=== PATIENT | female | born 1960 | race Native Hawaiian/Other Pacific Islander ===

== ENCOUNTER 2019-02-02 11:02 | Emergency (ER) | payer MEDICARE, MEDICAID ==
[~2019-02-02] VITALS: Ht 154.9 cm; Wt 204.0 kg
[2019-02-02] MEDS ORDERED: predniSONE 20 mg tablet PO ONE (11:55)
[2019-02-02] MEDS ORDERED: ipratropium/albuterol 3ml nebule NEB ONE (11:55)
[2019-02-02 12:30] LABS: BASOPHILS % (AUTO) 0.2 % (0-1); EOSINOPHILS # (AUTO) 0.1 X10'3 (0-0.9); EOSINOPHILS % (AUTO) 1.2 % (0-6); HEMATOCRIT 36.7 % (35.0-45.0); LYMPHOCYTES # (AUTO) 1.4 X10'3 (1.1-4.8); LYMPHOCYTES % (AUTO) 17.3 % (21-51); MEAN CORPUSCULAR HEMOGLOBIN 29.3 PG (27.0-31.0); MEAN CORPUSCULAR HGB CONC 32.7 g/dL (33.0-36.5); MEAN CORPUSCULAR VOLUME 89.7 FL (78-98); MEAN PLATELET VOLUME 8.6 FL (7.4-10.4); MONOCYTES # (AUTO) 0.5 X10'3 (0-0.9); MONOCYTES % (AUTO) 6.1 % (2-12); NEUTROPHILS # (AUTO) 6.1 X10'3 (1.8-7.7); NEUTROPHILS % (AUTO) 75.2 % (42-75); PLATELET COUNT 144 X10'3 (140-440); RED BLOOD COUNT 4.09 X10'6 (4.20-5.60); RED CELL DISTRIBUTION WIDTH 15.3 % (11.5-14.5); WHITE BLOOD COUNT 8.1 X10'3 (4.5-11.0)
[2019-02-02 12:45] LABS: ALANINE AMINOTRANSFERASE 15 U/L (12-78); ALBUMIN 2.8 G/DL (3.4-5.0); ALBUMIN/GLOBULIN RATIO 0.5 (1.1-1.5); ALKALINE PHOSPHATASE 58 IU/L (46-116); ANION GAP 6 (8-16); ASPARTATE AMINO TRANSFERASE 15 U/L (10-37); BLOOD UREA NITROGEN 7 MG/DL (7-18); BUN/CREATININE RATIO 8.6 (6.6-38.0); CALCIUM 7.9 MG/DL (8.5-10.1); CHLORIDE 104 MMOL/L (99-107); CREATININE 0.81 MG/DL (0.40-0.90); GLUCOSE 102 MG/DL (70-104); MAGNESIUM 1.7 MG/DL (1.5-2.4); POTASSIUM 3.8 MMOL/L (3.5-5.1); SODIUM 141 MMOL/L (135-145); TOTAL CARBON DIOXIDE 31.3 MMOL/L (24-32); TOTAL PROTEIN 7.9 G/DL (6.4-8.2); eGFR 73 ML/MIN
[2019-02-02] MEDS ORDERED: ketorolac trometh. 30mg/ml inj. IV ONE (13:50)
[2019-02-02] MEDS ORDERED: PRED20TA PO (14:27)
[2019-02-02 14:51] VITALS: BP 117/38
== END 2019-02-02 15:13 | disposition home or self-care (01) ==
LOC: ER 11:03
DX: J44.1 Chronic obstructive pulmonary disease with (acute) exacerbation (principal); Z88.6 Allergy status to analgesic agent; Z79.899 Other long term (current) drug therapy
CPT/HCPCS: 36415; 71046; 80053; 83605; 83735; 83880; 84484; 85025; 87040; 87077; 87186; 93005; 94640; 94760; 96374; 99284; J1885; J7512

== ENCOUNTER 2019-02-04 08:04 | Inpatient (IN) | payer MEDICARE, MEDICAID ==
[~2019-02-04] VITALS: Ht 154.9 cm; Wt 201.7 kg
[~2019-02-04 08:04] MED LIST: PRED20TA PO
[2019-02-04] MEDS ORDERED: levoFLOXACIN-Levaquin 750MG/D5 150 ML IV ONE (08:20)
[2019-02-04] MEDS ORDERED: normal saline 1000ML IV soln IV ONE (08:20)
--- NOTE | 2019-02-04 08:21 | NUR ---
AWAITING FOR PICC RN TO START PIV.
[2019-02-04] MEDS ORDERED: ipratropium/albuterol 3ml nebule NEB ONE (08:25)
[2019-02-04] MEDS ORDERED: methylPREDNISolone sod succ 125mg/2ml vial IV ONE (08:25)
[2019-02-04 08:26] LABS: ABG BASE EXCESS 4.9 mmol/L (-2.0-3.0); ABG HCO3 31.3 mmol/L (22.0-26.0); ABG OXYGEN SATURATION 98.2 % (95-98); ABG PCO2 (T) 57.7 mmHg (35.0-45.0); ABG PH (T) 7.359 (7.350-7.450); ABG PO2 (T) 141.3 mmHg (83-108); ALLEN'S TEST Positive; FCOHb 1.4 % (0.5-1.5); FLOW 10 L/min; FMetHb 0.2 % (0.3-1.12); FO2Hb 96.6 % (94-100); PATIENT TEMPERATURE 38.7; TOTAL HEMOGLOBIN 13.3 G/dl (12.0-16.0)
--- NOTE | 2019-02-04 08:28 | NUR ---
picc RN at bedside.
[2019-02-04 09:00] LABS: BASOPHILS % (AUTO) 0.1 % (0-1); EOSINOPHILS % (AUTO) 0 % (0-6); HEMATOCRIT 37.3 % (35.0-45.0); HEMOGLOBIN 12.2 g/dl (12.0-16.0); LYMPHOCYTES # (AUTO) 0.6 X10'3 (1.1-4.8); LYMPHOCYTES % (AUTO) 6.3 % (21-51); MEAN CORPUSCULAR HEMOGLOBIN 29.4 PG (27.0-31.0); MEAN CORPUSCULAR HGB CONC 32.7 g/dL (33.0-36.5); MEAN CORPUSCULAR VOLUME 89.9 FL (78-98); MEAN PLATELET VOLUME 8.7 FL (7.4-10.4); MONOCYTES # (AUTO) 0.6 X10'3 (0-0.9); MONOCYTES % (AUTO) 6.8 % (2-12); NEUTROPHILS # (AUTO) 8.2 X10'3 (1.8-7.7); NEUTROPHILS % (AUTO) 86.8 % (42-75); PLATELET COUNT 170 X10'3 (140-440); RED BLOOD COUNT 4.14 X10'6 (4.20-5.60); RED CELL DISTRIBUTION WIDTH 15.4 % (11.5-14.5); WHITE BLOOD COUNT 9.5 X10'3 (4.5-11.0)
--- NOTE | 2019-02-04 09:03 | NUR ---
Rt and family at bedside.
[2019-02-04] MEDS ORDERED: FURO80TA87 PO (09:04)
[2019-02-04 09:20] LABS: PARTIAL THROMBOPLASTIN TIME 28 SECONDS (22-32)
[2019-02-04 09:23] LABS: CLARITY,URINE SLIGHTLY CLOUDY (Clear); COLOR,URINE YELLOW (Yellow); GLUCOSE, URINE NEGATIVE (Neg); KETONES,URINE NEGATIVE (Neg); LEUKOCYTE ESTERASE ,URINE NEGATIVE (Neg); NITRITES, URINE NEGATIVE (Neg); OCCULT BLOOD,URINE LARGE (Neg); PROTEIN,URINE 30 mg/dl (Neg)
--- NOTE | 2019-02-04 09:27 | NUR ---
breaking primary RN, pt is sitting up in bed family present, talking with them, no apparent distress
[2019-02-04 09:31] LABS: UA COLLECTION TYPE STRAIGHT CATH
[2019-02-04 09:33] LABS: MUCUS STRANDS MODERATE /LPF (Neg); SQUAMOUS EPITHELIAL CELL,UR MODERATE /LPF (FEW)
[2019-02-04 09:34] LABS: BACTERIA,URINE 1+ /HPF (Neg)
[2019-02-04 09:35] LABS: WBC CLUMPS,URINE FEW /HPF (NEGATIVE)
[2019-02-04 09:35] LABS: ALANINE AMINOTRANSFERASE 19 U/L (12-78); ALBUMIN 2.7 G/DL (3.4-5.0); ALBUMIN/GLOBULIN RATIO 0.5 (1.1-1.5); ALKALINE PHOSPHATASE 71 IU/L (46-116); ANION GAP 5 (8-16); ASPARTATE AMINO TRANSFERASE 17 U/L (10-37); BILIRUBIN,TOTAL 0.8 MG/DL (0.1-1.0); BLOOD UREA NITROGEN 11 MG/DL (7-18); BUN/CREATININE RATIO 12.8 (6.6-38.0); CALCIUM 8.5 MG/DL (8.5-10.1); CHLORIDE 105 MMOL/L (99-107); CREATININE 0.86 MG/DL (0.40-0.90); GLUCOSE 111 MG/DL (70-104); POTASSIUM 3.9 MMOL/L (3.5-5.1); SODIUM 142 MMOL/L (135-145); TOTAL CARBON DIOXIDE 31.6 MMOL/L (24-32); TOTAL PROTEIN 8.5 G/DL (6.4-8.2); eGFR 68 ML/MIN
[2019-02-04 10:01] LABS: ABG BASE EXCESS 3.3 mmol/L (-2.0-3.0); ABG HCO3 29.2 mmol/L (22.0-26.0); ABG OXYGEN SATURATION 93.8 % (95-98); ABG PCO2 (T) 51.3 mmHg (35.0-45.0); ABG PH (T) 7.376 (7.350-7.450); ABG PO2 (T) 73.5 mmHg (83-108); ALLEN'S TEST Positive; FCOHb 0.9 % (0.5-1.5); FLOW 3 L/min; FMetHb 0.1 % (0.3-1.12); FO2Hb 92.9 % (94-100); PATIENT TEMPERATURE 37.6; TOTAL HEMOGLOBIN 12.9 G/dl (12.0-16.0)
[2019-02-04 10:47] LABS: D-DIMER 1.72 MG/L FEU (0-0.50)
[2019-02-04] MEDS ORDERED: heparin 10,000 units/1 ML INJ IV PRN (11:20)
[2019-02-04] MEDS ORDERED: heparin 10,000 units/1 ML INJ IV ONE ×2 (11:20→11:25)
[2019-02-04] MEDS: heparin 25,000 UNIT/250ml bag 250 ML IV SCH (12:11)
--- NOTE | 2019-02-04 12:11 | NUR ---
Heparin drip rate verified with jorge Galvez to follow heparin per protocol.Rate at this time 2000 units/hour.
--- NOTE | 2019-02-04 12:51 | NUR ---
[facility] UNAVAILABLE DUE TO NEEDING PRIOR AUTHORIZATION
--- NOTE | 2019-02-04 14:28 | NUR ---
Patient up to bathroom at this time with assistance of family. Gait steady, balanced, no signs of distress noted, IV fluids running per MD order.
[2019-02-04] MEDS ORDERED: acetaminophen 325mg tablet PO PRN (16:35)
[2019-02-04] MEDS ORDERED: HYDROcodone/acetaminophen 5mg/325mg tablet PO PRN (16:35)
[2019-02-04] MEDS ORDERED: morphine 2 MG/ML inj. syringe IV PRN ×2 (16:35)
[2019-02-04] MEDS ORDERED: HYDROcodone/acetaminophen 10/325mg tab PO PRN (16:35)
[2019-02-04] MEDS ORDERED: magnesium hydroxide 30ml (MOM) UD suspension PO PRN (16:35)
[2019-02-04] MEDS ORDERED: mag hydrox/Alum hydrox/simeth 30ml oral suspension PO PRN (16:35)
[2019-02-04] MEDS ORDERED: ondansetron/PF 4mg/2ml inj IV PRN (16:35)
[2019-02-04] MEDS ORDERED: PRED20TA PO (16:52)
[2019-02-04] MEDS ORDERED: FURO-149 PO (16:52)
[2019-02-04] MEDS ORDERED: ALBU18HF2 INH (16:52)
[2019-02-04 16:53] LABS: HEMOGLOBIN A1C 5.7 % (4.5-6.2)
[2019-02-04] MEDS ORDERED: CARV3.122 PO (16:57)
[2019-02-04] MEDS ORDERED: POTA10TA36 PO (16:57)
[2019-02-04] MEDS ORDERED: BUDE10.2 INH (16:57)
--- NOTE | 2019-02-04 17:45 | NUR ---
Patient admitted in room PCU 3018 from ED. I have received report from Joseph ZAROC and had the opportunity to ask questions and assume patient care. Pt is stable, VS 152/77 68 18 96% on 3L, heparin GTTS infusing, all needs met at this time.
[2019-02-04] MEDS: furosemide 40mg/4ml inj IV SCH ×2 (18:40→23:03)
--- NOTE | 2019-02-04 18:45 | NUR ---
Patient in room PCU 3018. I have received report from HAROLDO Hammonds and had the opportunity to ask questions and assume patient care.
[2019-02-04 18:47] VITALS: BP 152/77
[2019-02-04] MEDS: budesonide 0.5mg/2ml UD nebule IH SCH (20:00)
[2019-02-04] MEDS: potassium chloride 10mEq ER tablet PO SCH ×2 (20:00→22:59)
[2019-02-04] MEDS: carVEDilol 3.125mg tablet PO SCH (20:46)
[2019-02-04 23:00] VITALS: BP 143/69
[2019-02-05 03:00] VITALS: BP 134/76
[2019-02-05] MEDS: heparin 25,000 UNIT/250ml bag 250 ML IV SCH (03:47)
--- NOTE | 2019-02-05 04:44 | NUR ---
Patient is going in and out of [facility]. Patient resting comfortable, asymptomatic. Reported to MD. Will continue to monitor.
[2019-02-05 06:00] VITALS: BP 139/73
--- NOTE | 2019-02-05 06:09 | NUR ---
Problems reprioritized. Patient report given, questions answered & plan of care reviewed with HAROLDO Cheatham.
[2019-02-05 06:10] LABS: BASOPHILS % (AUTO) 0.1 % (0-1); EOSINOPHILS % (AUTO) 0 % (0-6); HEMOGLOBIN 11.6 g/dl (12.0-16.0); LYMPHOCYTES # (AUTO) 0.8 X10'3 (1.1-4.8); LYMPHOCYTES % (AUTO) 8.9 % (21-51); MEAN CORPUSCULAR HEMOGLOBIN 29.3 PG (27.0-31.0); MEAN CORPUSCULAR HGB CONC 33.1 g/dL (33.0-36.5); MEAN CORPUSCULAR VOLUME 88.7 FL (78-98); MEAN PLATELET VOLUME 8.8 FL (7.4-10.4); MONOCYTES # (AUTO) 0.7 X10'3 (0-0.9); MONOCYTES % (AUTO) 8.3 % (2-12); NEUTROPHILS # (AUTO) 7.2 X10'3 (1.8-7.7); NEUTROPHILS % (AUTO) 82.7 % (42-75); PLATELET COUNT 174 X10'3 (140-440); RED BLOOD COUNT 3.94 X10'6 (4.20-5.60); RED CELL DISTRIBUTION WIDTH 15.2 % (11.5-14.5); WHITE BLOOD COUNT 8.8 X10'3 (4.5-11.0)
--- NOTE | 2019-02-05 06:21 | NUR ---
Problems reprioritized. Patient report given, questions answered & plan of care reviewed with HAROLDO Hammonds.
--- NOTE | 2019-02-05 06:47 | NUR ---
Patient in room PCU 3018. I have received report from Carlotta ZARCO and had the opportunity to ask questions and assume patient care.
[2019-02-05 07:09] LABS: ALANINE AMINOTRANSFERASE 21 U/L (12-78); ALBUMIN 2.5 G/DL (3.4-5.0); ALBUMIN/GLOBULIN RATIO 0.5 (1.1-1.5); ALKALINE PHOSPHATASE 61 IU/L (46-116); ANION GAP 5 (8-16); ASPARTATE AMINO TRANSFERASE 15 U/L (10-37); BILIRUBIN,TOTAL 0.4 MG/DL (0.1-1.0); BLOOD UREA NITROGEN 19 MG/DL (7-18); BUN/CREATININE RATIO 20.2 (6.6-38.0); CALCIUM 8.6 MG/DL (8.5-10.1); CHLORIDE 104 MMOL/L (99-107); CREATININE 0.94 MG/DL (0.40-0.90); GLUCOSE 154 MG/DL (70-104); POTASSIUM 4.2 MMOL/L (3.5-5.1); SODIUM 142 MMOL/L (135-145); eGFR 61 ML/MIN
[2019-02-05] MEDS: furosemide 40mg/4ml inj IV SCH ×2 (07:56→16:37)
[2019-02-05] MEDS: budesonide 0.5mg/2ml UD nebule IH SCH ×2 (08:43→18:59)
[2019-02-05] MEDS: potassium chloride 8mEq ER tablet PO SCH ×2 (08:55→20:48)
[2019-02-05] MEDS: carVEDilol 3.125mg tablet PO SCH ×2 (08:55→20:00)
[2019-02-05 11:00] VITALS: BP 124/70
--- NOTE | 2019-02-05 11:37 | NUR ---
PAGER ID: [phone] MESSAGE: [id number] Santana Echevarria: Vascular ultrasound was completed, pending results. Thanks Chaparrita
--- NOTE | 2019-02-05 12:14 | NUR ---
Was informed by SARAH Grant that pt will be going to [facility] via [facility] to rule out PE, spoke with Dr. Gil and received orders to stop heparin GTTS and start eliquis 5 mg one time now.
[2019-02-05] MEDS ORDERED: apixaban 5mg tablet PO ONE (12:30)
--- NOTE | 2019-02-05 14:04 | NUR ---
Pt transferred to [facility] by [facility] for CTA accompanied by Stanislav ZARCO. Addendum: 02/05/19 at 1508 by Tacos Holley RN Amended: Links added.
--- NOTE | 2019-02-05 14:18 | NUR ---
Pt left to [facility] with 1 RN and 2 transporters from [facility] via piotr @ [employer].
--- NOTE | 2019-02-05 14:52 | NUR ---
Pt transferred back to [facility] via [facility] by piotr. Pt back to room with successful completion of CTA at [facility]. VSS and pt continues to appear to be in stable condition. Addendum: 02/05/19 at 1508 by Tacos Holley RN Amended: Links added.
[2019-02-05 15:00] VITALS: BP 130/53
--- NOTE | 2019-02-05 18:39 | NUR ---
Problems reprioritized. Patient report given, questions answered & plan of care reviewed with cecil johnson.
[2019-02-05 19:00] VITALS: BP 123/73
[2019-02-05] MEDS: apixaban 5mg tablet PO SCH (20:48)
[2019-02-05 23:00] VITALS: BP 130/58
[2019-02-06] MEDS: furosemide 40mg/4ml inj IV SCH ×3 (00:32→16:57)
[2019-02-06 03:00] VITALS: BP 110/64
[2019-02-06 06:00] VITALS: BP 122/62
[2019-02-06 07:54] LABS: BASOPHILS % (AUTO) 0.3 % (0-1); EOSINOPHILS % (AUTO) 0.9 % (0-6); HEMATOCRIT 37.5 % (35.0-45.0); HEMOGLOBIN 12.2 g/dl (12.0-16.0); LYMPHOCYTES # (AUTO) 0.9 X10'3 (1.1-4.8); LYMPHOCYTES % (AUTO) 20.6 % (21-51); MEAN CORPUSCULAR HEMOGLOBIN 29.5 PG (27.0-31.0); MEAN CORPUSCULAR HGB CONC 32.7 g/dL (33.0-36.5); MEAN CORPUSCULAR VOLUME 90.3 FL (78-98); MONOCYTES # (AUTO) 0.4 X10'3 (0-0.9); MONOCYTES % (AUTO) 9.3 % (2-12); NEUTROPHILS # (AUTO) 3.2 X10'3 (1.8-7.7); NEUTROPHILS % (AUTO) 68.9 % (42-75); PLATELET COUNT 165 X10'3 (140-440); RED BLOOD COUNT 4.15 X10'6 (4.20-5.60); RED CELL DISTRIBUTION WIDTH 15.8 % (11.5-14.5); WHITE BLOOD COUNT 4.6 X10'3 (4.5-11.0)
[2019-02-06 08:00] LABS: ALANINE AMINOTRANSFERASE 30 U/L (12-78); ALBUMIN 2.4 G/DL (3.4-5.0); ALBUMIN/GLOBULIN RATIO 0.4 (1.1-1.5); ALKALINE PHOSPHATASE 58 IU/L (46-116); ANION GAP 3 (8-16); ASPARTATE AMINO TRANSFERASE 24 U/L (10-37); BILIRUBIN,TOTAL 0.4 MG/DL (0.1-1.0); BLOOD UREA NITROGEN 22 MG/DL (7-18); CALCIUM 8.4 MG/DL (8.5-10.1); CHLORIDE 102 MMOL/L (99-107); GLUCOSE 87 MG/DL (70-104); POTASSIUM 3.7 MMOL/L (3.5-5.1); SODIUM 143 MMOL/L (135-145); TOTAL CARBON DIOXIDE 38.1 MMOL/L (24-32); TOTAL PROTEIN 7.8 G/DL (6.4-8.2); eGFR 57 ML/MIN
[2019-02-06] MEDS: budesonide 0.5mg/2ml UD nebule IH SCH ×2 (08:07→20:02)
[2019-02-06] MEDS: carVEDilol 3.125mg tablet PO SCH ×2 (08:57→19:51)
[2019-02-06] MEDS: potassium chloride 8mEq ER tablet PO SCH ×2 (08:57→19:51)
[2019-02-06] MEDS: apixaban 5mg tablet PO SCH ×2 (08:58→19:51)
[2019-02-06 11:00] VITALS: BP 115/68
[2019-02-06 15:00] VITALS: BP 131/55
[2019-02-06 18:00] VITALS: BP 113/51
[2019-02-07] MEDS: furosemide 40mg/4ml inj IV SCH ×3 (00:51→17:26)
--- NOTE | 2019-02-07 05:32 | NUR ---
Orientation documentation: I have reviewed and agree with all interventions, assessments and meds passed by Sudeep Hickman
--- NOTE | 2019-02-07 06:17 | NUR ---
Problems reprioritized. Patient report given, questions answered & plan of care reviewed with Chaparrita.
[2019-02-07 06:37] LABS: MEAN PLATELET VOLUME 8.4 FL (7.4-10.4)
[2019-02-07 06:40] LABS: BASOPHILS % (AUTO) 0.5 % (0-1); EOSINOPHILS # (AUTO) 0.1 X10'3 (0-0.9); EOSINOPHILS % (AUTO) 2.9 % (0-6); HEMATOCRIT 38.4 % (35.0-45.0); HEMOGLOBIN 12.8 g/dl (12.0-16.0); LYMPHOCYTES # (AUTO) 0.8 X10'3 (1.1-4.8); LYMPHOCYTES % (AUTO) 17.1 % (21-51); MEAN CORPUSCULAR HEMOGLOBIN 29.3 PG (27.0-31.0); MEAN CORPUSCULAR HGB CONC 33.2 g/dL (33.0-36.5); MEAN CORPUSCULAR VOLUME 88.4 FL (78-98); MONOCYTES # (AUTO) 0.5 X10'3 (0-0.9); MONOCYTES % (AUTO) 10.5 % (2-12); NEUTROPHILS # (AUTO) 3.3 X10'3 (1.8-7.7); PLATELET COUNT 199 X10'3 (140-440); RED BLOOD COUNT 4.35 X10'6 (4.20-5.60); RED CELL DISTRIBUTION WIDTH 15.3 % (11.5-14.5); WHITE BLOOD COUNT 4.8 X10'3 (4.5-11.0)
[2019-02-07 06:52] LABS: ALANINE AMINOTRANSFERASE 34 U/L (12-78); ALBUMIN 2.4 G/DL (3.4-5.0); ALBUMIN/GLOBULIN RATIO 0.5 (1.1-1.5); ALKALINE PHOSPHATASE 58 IU/L (46-116); ANION GAP 1 (8-16); ASPARTATE AMINO TRANSFERASE 30 U/L (10-37); BILIRUBIN,TOTAL 0.5 MG/DL (0.1-1.0); BLOOD UREA NITROGEN 22 MG/DL (7-18); BUN/CREATININE RATIO 22.2 (6.6-38.0); CALCIUM 8.4 MG/DL (8.5-10.1); CHLORIDE 98 MMOL/L (99-107); CREATININE 0.99 MG/DL (0.40-0.90); GLUCOSE 93 MG/DL (70-104); POTASSIUM 3.6 MMOL/L (3.5-5.1); SODIUM 141 MMOL/L (135-145); TOTAL PROTEIN 7.7 G/DL (6.4-8.2); eGFR 58 ML/MIN
[2019-02-07 06:54] LABS: TOTAL CARBON DIOXIDE 42.2 MMOL/L (24-32)
--- NOTE | 2019-02-07 07:00 | NUR ---
Critical Lab Page to Louise MELCHOR CO2 42.2 MESSAGE: Santana Hernandez [id number]: Critical Lab value report: CO2=42.2 [facility] Kim [phone]
[2019-02-07 07:07] VITALS: BP 104/62
[2019-02-07] MEDS: carVEDilol 3.125mg tablet PO SCH ×2 (09:01→20:27)
[2019-02-07] MEDS: potassium chloride 8mEq ER tablet PO SCH ×2 (09:01→20:27)
[2019-02-07] MEDS: apixaban 5mg tablet PO SCH ×2 (09:01→20:00)
[2019-02-07] MEDS: budesonide 0.5mg/2ml UD nebule IH SCH ×2 (10:58→19:47)
[2019-02-07 11:00] VITALS: BP 127/81
[2019-02-07 15:00] VITALS: BP 134/54
[2019-02-07 18:00] VITALS: BP 139/59
--- NOTE | 2019-02-07 18:30 | NUR ---
Patient in room PCU 3018. I have received report from CANDACE and had the opportunity to ask questions and assume patient care.
[2019-02-07 19:00] VITALS: BP 139/54
[2019-02-07] MEDS: albuterol 2.5 MG/3 ML nebule NEB PRN (19:47)
[2019-02-07 22:00] VITALS: BP 117/41
[2019-02-08] MEDS: furosemide 40mg/4ml inj IV SCH ×2 (00:09→08:34)
[2019-02-08 02:00] VITALS: BP 119/71
[2019-02-08 06:00] VITALS: BP 116/67
[2019-02-08 06:26] LABS: BASOPHILS % (AUTO) 0.3 % (0-1); EOSINOPHILS # (AUTO) 0.3 X10'3 (0-0.9); HEMATOCRIT 40.8 % (35.0-45.0); HEMOGLOBIN 13.5 g/dl (12.0-16.0); LYMPHOCYTES # (AUTO) 1.3 X10'3 (1.1-4.8); LYMPHOCYTES % (AUTO) 19.2 % (21-51); MEAN PLATELET VOLUME 8.3 FL (7.4-10.4); MONOCYTES # (AUTO) 0.6 X10'3 (0-0.9); MONOCYTES % (AUTO) 9.1 % (2-12); NEUTROPHILS # (AUTO) 4.5 X10'3 (1.8-7.7); NEUTROPHILS % (AUTO) 67.4 % (42-75); PLATELET COUNT 216 X10'3 (140-440); RED BLOOD COUNT 4.64 X10'6 (4.20-5.60); RED CELL DISTRIBUTION WIDTH 15.4 % (11.5-14.5); WHITE BLOOD COUNT 6.7 X10'3 (4.5-11.0)
[2019-02-08 06:32] LABS: ALANINE AMINOTRANSFERASE 40 U/L (12-78); ALBUMIN 2.6 G/DL (3.4-5.0); ALBUMIN/GLOBULIN RATIO 0.5 (1.1-1.5); ALKALINE PHOSPHATASE 63 IU/L (46-116); ANION GAP 0 (8-16); ASPARTATE AMINO TRANSFERASE 34 U/L (10-37); BILIRUBIN,TOTAL 0.7 MG/DL (0.1-1.0); BLOOD UREA NITROGEN 23 MG/DL (7-18); BUN/CREATININE RATIO 22.8 (6.6-38.0); CALCIUM 8.4 MG/DL (8.5-10.1); CHLORIDE 97 MMOL/L (99-107); CREATININE 1.01 MG/DL (0.40-0.90); GLUCOSE 104 MG/DL (70-104); POTASSIUM 3.6 MMOL/L (3.5-5.1); SODIUM 139 MMOL/L (135-145); TOTAL PROTEIN 8.3 G/DL (6.4-8.2); eGFR 56 ML/MIN
--- NOTE | 2019-02-08 06:32 | NUR ---
Problems reprioritized. Patient report given, questions answered & plan of care reviewed with BRADEN.
--- NOTE | 2019-02-08 06:34 | NUR ---
Patient in room PCU 3018. I have received report from HAROLDO Hernandez and had the opportunity to ask questions and assume patient care.
[2019-02-08 06:53] LABS: TOTAL CARBON DIOXIDE 42.1 MMOL/L (24-32)
--- NOTE | 2019-02-08 06:56 | NUR ---
PAGER ID: [phone] MESSAGE: [id number]. Critical CO2 of 42.1, patient is sleeping on cpap at this time. Mattie [phone]
[2019-02-08] MEDS: apixaban 5mg tablet PO SCH (08:00)
[2019-02-08] MEDS: potassium chloride 8mEq ER tablet PO SCH (08:34)
[2019-02-08] MEDS: carVEDilol 3.125mg tablet PO SCH (08:34)
[2019-02-08] MEDS ORDERED: FURO80TA87 PO (08:49)
[2019-02-08] MEDS ORDERED: FURO-149 PO (08:49)
[2019-02-08] MEDS: albuterol 2.5 MG/3 ML nebule NEB PRN (09:23)
[2019-02-08] MEDS: budesonide 0.5mg/2ml UD nebule IH SCH (09:23)
[2019-02-08 11:00] VITALS: BP 109/58
--- NOTE | 2019-02-08 11:15 | NUR ---
Soliman catheter removed with no issues, will monitor for independent urination before discharging.
--- NOTE | 2019-02-08 14:19 | NUR ---
Pt has been discharged to home with family via wheelchair with hospital staff at 1420. Pt was educated on discharge and signed discharge paperwork and medicare form.
== END 2019-02-08 14:20 | disposition home health service (06) | DRG 291 ==
LOC: ER 08:05 → ED HOLD 16:31 → PCU 3S 17:55
PROVIDERS: ADMIT Internal Medicine; ATTEND Internal Medicine
PROC: 5A09357 Assistance with Respiratory Ventilation, Less than 24 Consecutive Hours, Continuous Positive Airway Pressure (ICD-10-PCS; 2019-02-04)
PROC: 5A09357 Assistance with Respiratory Ventilation, Less than 24 Consecutive Hours, Continuous Positive Airway Pressure (ICD-10-PCS; 2019-02-05)
PROC: 5A09357 Assistance with Respiratory Ventilation, Less than 24 Consecutive Hours, Continuous Positive Airway Pressure (ICD-10-PCS; 2019-02-06)
PROC: 5A09357 Assistance with Respiratory Ventilation, Less than 24 Consecutive Hours, Continuous Positive Airway Pressure (ICD-10-PCS; principal; 2019-02-07)
DX: I11.0 Hypertensive heart disease with heart failure (principal); J18.9 Pneumonia, unspecified organism; R04.2 Hemoptysis; Z68.45 Body mass index [BMI] 70 or greater, adult; I50.813 Acute on chronic right heart failure; E66.01 Morbid (severe) obesity due to excess calories; G47.30 Sleep apnea, unspecified; I27.81 Cor pulmonale (chronic); Z88.6 Allergy status to analgesic agent; Z79.899 Other long term (current) drug therapy
CPT/HCPCS: 36415; 36600; 71045; 71046; 76937; 80053; 81001; 82803; 83036; 83605; 83735; 83880; 84145; 84484; 85018; 85025; 85379; 85610; 85730; 87040; 87077; 87081; 87088; 87186; 93005; 93306; 93970; 94640; 94760; 99285; G0378; J1644; J1940; J1956; J2930; J7626